=== PATIENT | male | born 1975 | race Caucasian/White ===

== ENCOUNTER 2016-06-17 11:35 | Day surgery (SDC) | payer BC ==
[2016-06-15 13:19] LABS: BASOPHILS 0.2 %; BASOPHILS ABSOLUTE 0.03 10/3/uL (0.0-0.16); EOSINOPHILS 1.2 %; EOSINOPHILS ABSOLUTE 0.16 10/3/uL (0.0-0.53); HEMOGLOBIN 14.1 g/dL (13.6-17.8); IMMATURE GRANULOCYTES 0.2 %; IMMATURE GRANULOCYTES ABSOLUTE 0.03 10/3/uL (0.0-0.11); LYMPHOCYTES 26.9 %; LYMPHOCYTES ABSOLUTE 3.62 10/3/uL (0.67-4.30); MEAN CORPUS HGB CONC 34.4 g/dL (32.0-36.0); MEAN CORPUSCULAR HEMOGLOB 31.8 pg (26.0-34.0); MEAN PLATELET VOLUME 9.8 fL (9.2-13.0); MONOCYTES 4.5 %; PLATELET COUNT 248 10/3/uL (150-400); RBC DISTRIBUTION WIDTH 14.4 % (12.0-16.0); RED CELL COUNT 4.43 10/6/uL (4.7-6.1); WHITE BLOOD CELLS 13.4 10/3/uL (4.5-10.5)
[2016-06-15 13:21] LABS: MANUAL DIFF NO %; MEAN CORPUSCULAR VOLUME 92.6 fL (80-100)
[2016-06-15 13:36] LABS: BUN (BLOOD UREA NITROGEN) 7 MG/DL (6-23); CALCIUM, SERUM 8.8 MG/DL (8.5-10.4); CHLORIDE, SERUM 104 MMOL/L (96-112); CO2 (CARBON DIOXIDE) 32 MMOL/L (24-34); GFR AFRICAN AMERICAN 131 ML/MIN (>=60); GFR NON AFRICAN AMERICAN 113 ML/MIN (>=60); POTASSIUM, SERUM 3.8 MMOL/L (3.5-5.3); SODIUM, SERUM 141 MMOL/L (135-148)
[2016-06-15 13:49] LABS: GLUCOSE, SERUM 50 MG/DL (60-99)
--- NOTE | ~2016-06-17 | OP ---
Record Of Operation [facility] [address] [place]. [address] NAME: REBA CHURCH : 79 STATUS : [facility]#: [id number] AGE: 40 ADM/REG DATE : 06/17/16 MR#: [id number] REPORT SERV DATE: 06/17/16 DICTATED BY: LIZETT RIVAS DATE: 06/17/16 REPORT STATUS : Draft TRANSCRIBED BY: MODRuby DATE: 06/17/16 DATE OF PROCEDURE: 06/17/2016 SERVICE: Otolaryngology. PREOPERATIVE DIAGNOSIS: Persistent right cervical lymphadenopathy. POSTOPERATIVE DIAGNOSIS: Negative neck exploration. PROCEDURE: Excisional biopsy of a deep right cervical lymph node. GALVANIZER ZINC: Wendy. ANESTHESIA: General endotracheal anesthesia. ESTIMATED BLOOD LOSS: 3 mL. COMPLICATIONS: None. SPECIMEN: Perifacial lymph node. FINDINGS: Broad in this patient. Patient had previous lymphadenopathy that been fine needle biopsied, and the patient had persistent lymphadenopathy. Ultrasound revealed that there is preoperatively. I counseled the patient after a negative fine-needle aspiration biopsy that this needed to be just left alone, it was likely reactive, however, patient was very very concerned about it, and given the fact that it was persistent and enlarged at that time, I told him I would excise it and send it for a permanent pathology. STATEMENT OF OPERATION: Patient was brought to the operating room in supine position, transferred to operating room table. All pressure points were padded and general endotracheal anesthesia was established, the patient's neck was turned to the left and slightly extended. A 2 cm incision was marked out in a relaxed skin tension line. 3 mL of 1% local were infiltrated in the skin and soft tissue. The patient was then prepped and draped in the usual fashion exposing the corner of his mouth to evaluate for muscle twitching. A #15 blade was then used to incise through the platysma. Blunt dissection was then carried out down to the level of the digastric muscle, fully expose the posterior aspect of the submandibular gland in the submandibular space as well as a lingual gland, identified the facial artery and facial vein. I did a full exploration of this part of his neck, this was where the previous lymphadenopathy was present. Once I satisfied myself, there was no abnormally large or abnormal lymphadenopathy, I did remove a perifacial lymph node that was in the operative field, this was passed off for permanent analysis. This concluded the case. I irrigated the field thoroughly with warm saline and then closed the wound in three layers. First I closed the platysma with buried 3-0 Vicryl followed by the deep dermis with buried 3-0 Vicryl, and finally, the skin was approximated with Dermabond. The patient tolerated procedure well. There were no complications. He was awoken and transferred to the PACU in stable condition. Record Of Operation [address] [address] NAME: REBA CHURCH : 79 STATUS : [facility] PAT#: [id number] AGE: 40 ADM/REG DATE : 06/17/16 MR#: [id number] REPORT SERV DATE: 06/17/16 DICTATED BY: LIZETT RIVAS DATE: 06/17/16 REPORT STATUS : Draft TRANSCRIBED BY: MONY DATE: 06/17/16 PS/MONY Lizett Rivas MD / [id number] CC: MD VAN[facility]A [facility]
[~2016-06-17 11:35] MED LIST: *DENIES; CLARIT10 PO; MOBIC15 MG PO; NORCO1 TA1 PO
== END 2016-06-17 15:50 | disposition home or self-care (01) ==
LOC: SDC 11:35
PROVIDERS: Otolaryngology
PROC: 07B10ZX Excision of Right Neck Lymphatic, Open Approach, Diagnostic (ICD-10-PCS; principal; 2016-06-17 12:45)
DX: E65 Localized adiposity (principal); G89.29 Other chronic pain; M54.9 Dorsalgia, unspecified; F17.210 Nicotine dependence, cigarettes, uncomplicated; Z79.891 Long term (current) use of opiate analgesic; Z79.899 Other long term (current) drug therapy; Z90.49 Acquired absence of other specified parts of digestive tract
CPT/HCPCS: 80048; 85025; 88305; 93005; A9270-GY; J0330; J0690; J2250; J2405; J3010